=== PATIENT | male | born 1975 | race Caucasian/White ===

== ENCOUNTER 2023-08-07 09:02 | Outpatient (OUT) | payer BC, SELFPAY ==
--- NOTE | 2023-08-07 | XR_ITS ---
The [address] [address] Patient Name: CASSY SANTILLAN MRN: [id number] date: 1975 Sex: M Assigned Patient Location: [facility] Current Patient Location: Accession/Order Number: [id number] Exam Date: 08/07/2023 09:10 Report Date: 08/08/2023 11:25 At the request of: COLLEEN MAYER Procedure: XR foot LISA min 3V EXAMINATION: XR foot LISA min 3V HISTORY: BILATERAL FOOT PAIN COMPARISON: No relevant comparison available. FINDINGS: RIGHT FINDINGS: BONES: Small calcaneal plantar spur. No fracture, dislocation, or bone lesion. No appreciable significant degenerative joint disease. SOFT TISSUES: No visible soft tissue swelling. OTHER: Negative. LEFT FINDINGS: BONES: Small calcaneal plantar spur. No fracture, dislocation, or bone lesion. No appreciable significant degenerative joint disease. SOFT TISSUES: No visible soft tissue swelling. OTHER: Negative. XR/XR foot LISA min 3V IMPRESSION: RIGHT CONCLUSION: No acute abnormality or significant degenerative changes. LEFT CONCLUSION: No acute abnormality significant degenerative changes. Electronically authenticated by: SAHIL ASCENCIO Date: 08/08/2023 11:25
== END 2023-08-07 09:03 | disposition home or self-care (01) ==
LOC: RAD 09:04
PROVIDERS: Visit Provider Physician Assistant
DX: M77.41 Metatarsalgia, right foot (principal); M77.42 Metatarsalgia, left foot
CPT/HCPCS: 73630

== ENCOUNTER 2024-09-04 09:39 | Emergency (ER) | payer BC, SELFPAY ==
[2024-09-04 09:42] VITALS: BP 146/104; PULSE 103; TEMP 36.7; O2SAT 98; BMI 28.5
--- OUTSIDE RECORDS SUMMARY | 2024-09-04 09:47 | XMS_ITS | CCD ---
Author Organization 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 Name Role Phone MD Kody Gonzalez Primary Care Provider MD Kody Gonzalez Attending Provider [phone] [place] DO, Franki L Primary Care Provider [phone] Augusta, DO Franki L Primary Care Provider Augusta, DO Franki L Attending Provider Augusta, Franki L Attending Unavailable Augusta, Franki L Primary Care Unavailable Augusta, Franki L Admitting Unavailable CUTLER, FRANKI L Attending Unavailable CUTLER, FRANKI L Attending Unavailable CUTLER, FRANKI L Attending Unavailable Allergies Allergy Classification Reported Allergen(s) Allergy Type Date of Onset Reaction(s) Facility (2 sources) House dust mite Allergy to substance 10-24-2015 Unknown [facility] (2 sources) Cat Hair Extract Allergy to substance 10-24-2015 Unknown [facility] Medications Current Medications Medication Drug Class(es) Dates Sig (Normalized) Sig (Original) amLODIPine 5 mg / olmesartan medoxomil 40 mg oral tablet (2 sources) Dihydropyridine Calcium Channel Maritza, Angiotensin 2 Receptor Maritza Start: 07-23-2024 amLODIPine-olmesa rtan (Bailey) 5-40 MG tablet Indications: Primary hypertension (CMS/HCC) TAKE 1 TABLET DAILY 90 tablet 3 07/23/2024 Active atorvastatin 20 mg oral tablet (2 sources) HMG-CoA Reductase Inhibitor Start: 06-28-2024 atorvastatin (Lipitor) 20 MG tablet Indications: Type 2 diabetes mellitus with hyperglycemia, without long-term current use of insulin (CMS/HCC) TAKE 1 TABLET DAILY 90 tablet 3 06/28/2024 Active meloxicam 15 mg oral tablet (2 sources) Nonsteroidal Anti-inflammatory Drug take 1 tablet by mouth once daily meloxicam (Mobic) 15 MG tablet Take 15 mg by mouth Daily Active 24 hr metFORMIN hydrochloride 500 mg extended release oral tablet (2 sources) Biguanide Start: 06-28-2024 metFORMIN XR (Glucophage-XR) 500 MG 24 hr tablet Indications: Type 2 diabetes mellitus with hyperglycemia, without long-term current use of insulin (CMS/HCC) TAKE 2 TABLETS IN THE MORNING AND BEFORE BEDTIME 360 tablet 3 06/28/2024 Active Ozempic, 0.25 or 0.5 MG/DOSE, 2 MG/3ML solution pen-injector (2 sources) Start: 06-21-2024 inject 0.5 mg by subcutaneous injection every week Ozempic, 0.25 or 0.5 MG/DOSE, 2 MG/3ML solution pen-injector Indications: Type 2 diabetes mellitus with hyperglycemia, without long-term current use of insulin (CMS/HCC) INJECT 0.5 MG UNDER THE SKIN ONCE WEEKLY 9 mL 3 06/21/2024 Active 24 hr venlafaxine 75 mg extended release oral capsule (2 sources) Serotonin and Norepinephrine Reuptake Inhibitor Start: 03-16-2024 take 1 capsule by mouth once daily in the morning venlafaxine XR (Effexor XR) 75 MG 24 hr capsule Indications: EMILIA (generalized anxiety disorder) (CMS/HCC) Take 1 capsule (75 mg) by mouth Daily Do not crush or chew.Take 1 capsule (75 mg) by mouth in the morning. Do not crush or chew.. 90 capsule 3 03/16/2024 Active Problems Active Problems Problem Classification Problem Date Documented Date Episodic/Chronic Diabetes mellitus with complications (3 sources) Type 2 diabetes mellitus with hyperglycemia; Translations: [Hyperglycemia due to type 2 diabetes mellitus] Onset: 11-19-2023 11-19-2023 Chronic Essential hypertension (2 sources) Essential hypertension; Translations: [Essential (primary) hypertension] Onset: 11-19-2023 11-19-2023 Chronic Osteoarthritis (2 sources) Osteoarthritis of left knee joint; Translations: [Unilateral primary osteoarthritis, left knee] Onset: 10-24-2015 11-19-2023 Chronic Substance-related disorders (2 sources) Smoker; Translations: [Nicotine dependence, unspecified, uncomplicated] Onset: 03-29-2024 03-29-2024 Chronic Past or Other Problems Problem Classification Problem Date Documented Da te Episodic/Chronic Sprains and strains (2 sources) Rupture of anterior cruciate ligament; Translations: [Sprain of anterior cruciate ligament of unspecified knee, initial encounter] Onset: 10-24-2015 Resolved: 11-19-2023 11-19-2023 Episodic Results Test Name Value Interpretation Reference Range Facility Alanine aminotransferase [En zymatic activity/volume] in Serum or PlasmaOrdered By: Franki Orellana on 12-25-2023 ALT [Catalytic activity/Vol] 65 U/L 7-52 [facility] Albumin [Mass/volume] in Ser um or Plasma by Bromocresol green (BCG) dye binding methoOrdered By: Franki Orellana on 12-25-2023 Albumin BCG dye [Mass/Vol] 4.9 g/dL 3.5-5.7 [facility] Alkaline phosphatase [Enzyma tic activity/volume] in Serum or PlasmaOrdered By: Franki Orellana on 12-25-2023 ALP [Catalytic activity/Vol] 69 U/L 34-104 [facility] Aspartate aminotransferase [ Enzymatic activity/volume] in Serum or PlasmaOrdered By: Franki Orellana on 12-25-2023 AST [Catalytic activity/Vol] 29 U/L 13-39 [facility] Basophils Auto (Bld) [#/Vol] Ordered By: Franki Orellana on 12-25-2023 Basophils (Bld) [#/Vol] 0.1 10*3/uL 0.0-0.2 [facility] Basophils/100 WBC Auto (Bld) Ordered By: Franki Orellana on 12-25-2023 Basophils/100 WBC (Bld) 1.0 % . F [facility] Bilirubin.total [Mass/volume ] in Serum or PlasmaOrdered By: Franki Orellana on 12-25-2023 Bilirubin [Mass/Vol] 0.9 mg/dL 0.3-1.0 [facility] Calcium [Mass/volume] in Ser um or PlasmaOrdered By: Franki Orellana on 12-25-2023 Calcium [Mass/Vol] 9.5 mg/dL 8.6-10.3 [facility] Carbon dioxide, total [Moles /volume] in Serum or PlasmaOrdered By: Franki Orellana on 12-25-2023 CO2 [Moles/Vol] 27.4 mmol/L 21.0-31.0 [facility] Chloride [Moles/volume] in S olga or PlasmaOrdered By: Franki Orellana on 12-25-2023 Chloride [Moles/Vol] 100 mmol/L 98-107 [facility] Cholesterol [Mass/volume] in Serum or PlasmaOrdered By: Franki Orellana on 12-25-2023 Cholesterol [Mass/Vol] 187 mg/dL 140-200 [facility] Comment on above: Chol less than 200 m g/dl low riskChol 201-239 mg/dl borderline riskChol 240 mg/dl and greater high risk Cholesterol in LDL Calc [Mas s/Vol]Ordered By: Franki Orellana on 12-25-2023 Cholesterol in LDL [Mass/Vol] 51 mg/dL 0-100 [facility] Comment on above: LDL ATP III CLASSIFI CATIONLDL less than 100 mg/dL OptimalLDL 100-129 mg/dL Near or above optimalLDL 130-159 mg/dL Borderline highLDL 160-189 mg/dL HighLDL greater than 189 mg/dL Very high Cholesterol in VLDL Calc [Ma ss/Vol]Ordered By: Franki Orellana on 12-25-2023 Cholesterol in VLDL [Mass/Vol] 79 mg/dL [facility] Complete Blood Count Auto Di ffon 12-25-2023 Basophils (Bld) [#/Vol] 0.1 10*3/uL Normal 0.0-0.2 [facility] Comment on above: Result Comment: PERF ORMED BY: [facility] [address] [place] [address] PATHOLOGIST TANK PROCESSOR JENNIFER DONNELLY M.D. Performed By: #### L IPID, CMP, CBC, URMACRERAT #### [facility] [address] [place] [address] [place] Basophils/100 WBC (Bld) 1.0 % Normal . F [facility] Comment on above: Performed By: #### L IPID, CMP, CBC, URMACRERAT #### [facility] [address] [place] [id number] [place] Eosinophils (Bld) [#/Vol] 0.1 10*3/uL Normal 0.0-0.45 [facility] Comment on above: Performed By: #### L IPID, CMP, CBC, URMACRERAT #### [address] Eosinophils/100 WBC (Bld) 1.7 % Normal . [facility] Comment on above: Performed By: #### L IPID, CMP, CBC, URMACRERAT #### [address] Erythrocyte distribution width (RBC) [Ratio] 12.7 % Normal 12.0-14.8 [facility] Comment on above: Performed By: #### L IPID, CMP, CBC, URMACRERAT #### [address] Hematocrit (Bld) [Volume fraction] 44.8 % Normal 38.8-50.0 [facility] Comment on above: Performed By: #### L IPID, CMP, CBC, URMACRERAT #### [address] Hemoglobin (Bld) [Mass/Vol] 15.3 g/dL Normal 13.0-17.0 [facility] Comment on above: Performed By: #### L IPID, CMP, CBC, URMACRERAT #### [address] Lymphocytes (Bld) [#/Vol] 0.9 10*3/uL Low 1.00-4.8 [facility] Comment on above: Performed By: #### L IPID, CMP, CBC, URMACRERAT #### [address] Lymphocytes/100 WBC (Bld) 16.5 % Normal . [facility] Comment on above: Performed By: #### L IPID, CMP, CBC, URMACRERAT #### [address] MCH (RBC) [Entitic mass] 31.2 pg Normal 27.5-35.2 [facility] Comment on above: Performed By: #### L IPID, CMP, CBC, URMACRERAT #### [address] MCV (RBC) [Entitic vol] 91.6 fL Normal 83.5-[address] [facility] Comment on above: Performed By: #### L IPID, CMP, CBC, URMACRERAT #### [address] Mean Corpuscular HGB Conc 34.1 g/dL Normal 32.5-35.6 [facility] Comment on above: Performed By: #### L IPID, CMP, CBC, URMACRERAT #### [address] Monocytes (Bld) [#/Vol] 0.5 10*3/uL Normal 0.0-0.8 [facility] Comment on above: Performed By: #### L IPID, CMP, CBC, URMACRERAT #### [place] [address] [place] Monocytes/100 WBC (Bld) 7.9 % Normal . F [facility] Comment on above: Performed By: #### L IPID, CMP, CBC, URMACRERAT #### [address] Neutrophils (Bld) [#/Vol] 4.2 10*3/uL Normal 1.8-7.7 [facility] Comment on above: Performed By: #### L IPID, CMP, CBC, URMACRERAT #### [place] [address] [place] Neutrophils/100 WBC (Bld) 72.9 % Normal . [facility] Comment on above: Performed By: #### L IPID, CMP, CBC, URMACRERAT #### [place] [address] [place] NRBC% 0.3 /100{WBC} Normal 0-0.5 [facility] Comment on above: Performed By: #### L IPID, CMP, CBC, URMACRERAT #### [facility] [address] Platelet mean volume (Bld) [Entitic vol] 8.6 fL Normal 6.6-10.1 [facility] Comment on above: Performed By: #### L IPID, CMP, CBC, URMACRERAT #### [facility] [address] Platelets (Bld) [#/Vol] 221 10*3/uL Normal 150-450 [facility] Comment on above: Performed By: #### L IPID, CMP, CBC, URMACRERAT #### [address] RBC (Bld) [#/Vol] 4.89 10*6/uL Normal 3.90-5.60 [facility] Comment on above: Performed By: #### L IPID, CMP, CBC, URMACRERAT #### [address] WBC (Bld) [#/Vol] 5.7 10*3/uL Normal 4.1-10.5 [facility] Comment on above: Performed By: #### L IPID, CMP, CBC, URMACRERAT #### [address] Comprehensive Metabolic Pane aureliano 12-25-2023 Albumin [Mass/Vol] 4.9 g/dL Normal 3.5-5.7 [facility] Comment on above: Performed By: #### L IPID, CMP, CBC, URMACRERAT #### [address] Albumin/Globulin [Mass ratio] 2.0 {ratio} Normal [facility] Comment on above: Performed By: #### L IPID, CMP, CBC, URMACRERAT #### [address] ALP [Catalytic activity/Vol] 69 U/L Normal 34-104 [facility] Comment on above: Performed By: #### L IPID, CMP, CBC, URMACRERAT #### [facility] [address] [place] [address] ALT [Catalytic activity/Vol] 65 U/L High 7-52 [facility] Comment on above: Performed By: #### L IPID, CMP, CBC, URMACRERAT #### [facility] [address] [place] [address] Anion gap [Moles/Vol] 13.8 mmol/L Normal 6.0-15.0 [facility] Comment on above: Performed By: #### L IPID, CMP, CBC, URMACRERAT #### [address] AST [Catalytic activity/Vol] 29 U/L Normal 13-39 [facility] Comment on above: Performed By: #### L IPID, CMP, CBC, URMACRERAT #### [facility] [address] [place] [address] Bilirubin [Mass/Vol] 0.9 mg/dL Normal 0.3-1.0 [facility] Comment on above: Performed By: #### L IPID, CMP, CBC, URMACRERAT #### [address] Calcium [Mass/Vol] 9.5 mg/dL Normal 8.6-10.3 [facility] Comment on above: Performed By: #### L IPID, CMP, CBC, URMACRERAT #### [address] Chloride [Moles/Vol] 100 mmol/L Normal 98-107 [facility] Comment on above: Performed By: #### L IPID, CMP, CBC, URMACRERAT #### [facility] [address] [place] [address] CO2 [Moles/Vol] 27.4 mmol/L Normal 21.0-31.0 [facility] Comment on above: Performed By: #### L IPID, CMP, CBC, URMACRERAT #### [facility] [address] Creatinine [Mass/Vol] 0.89 mg/dL Normal 0.70-1.30 [facility] Comment on above: Performed By: #### L IPID, CMP, CBC, URMACRERAT #### [facility] [address] GFR/1.73 sq M.predicted MDRD (S/P/Bld) [Vol rate/Area] mL/min/{1.73_m2} Normal [facility] Comment on above: Performed By: #### L IPID, CMP, CBC, URMACRERAT #### [facility] [address] Globulin (S) [Mass/Vol] 2.4 g/dL Normal [facility] Comment on above: Performed By: #### L IPID, CMP, CBC, URMACRERAT #### [address] Glucose [Mass/Vol] 195 mg/dL High 70-100 [facility] Comment on above: Result Comment: [facility] Glucose Reference Range is dependent on time and content of last meal. Glucose of more than 200 mg/dL in a nonstressed, ambulatory subject supports the diagnosis of Diabetes Mellitus. ADA recommended reference range Performed By: #### L IPID, CMP, CBC, URMACRERAT #### [facility] [address] Potassium [Moles/Vol] 4.2 mmol/L Normal 3.5-5.1 [facility] Comment on above: Performed By: #### L IPID, CMP, CBC, URMACRERAT #### [address] Protein [Mass/Vol] 7.3 g/dL Normal 6.4-8.9 [facility] Comment on above: Performed By: #### L IPID, CMP, CBC, URMACRERAT #### [address] [address] [place] Sodium [Moles/Vol] 137 mmol/L Normal 136-145 [facility] Comment on above: Performed By: #### L IPID, CMP, CBC, URMACRERAT #### [facility] [address] Urea nitrogen [Mass/Vol] 18 mg/dL Normal 7-25 [facility] Comment on above: Performed By: #### L IPID, CMP, CBC, URMACRERAT #### [facility] [address] [place] [address] [place] Creatinine [Mass/volume] in Serum or PlasmaOrdered By: Franki Orellana on 12-25-2023 Creatinine [Mass/Vol] 0.89 mg/dL 0.70-1.30 [facility] Creatinine [Mass/volume] in UrineOrdered By: Franki Orellana on 12-25-2023 Creatinine (U) [Mass/Vol] 221.0 mg/dL 14.0-26.0 [facility] Eosinophils Auto (Bld) [#/Vo l]Ordered By: Franki Orellana on 12-25-2023 Eosinophils (Bld) [#/Vol] 0.1 10*3/uL 0.0-0.45 [facility] Eosinophils/100 WBC Auto (Bl d)Ordered By: Franki Orellana on 12-25-2023 Eosinophils/100 WBC (Bld) 1.7 % . [facility] Erythrocyte distribution wid th Auto (RBC) [Ratio]Ordered By: Frnaki Orellana on 12-25-2023 Erythrocyte distribution width (RBC) [Ratio] 12.7 % 12.0-14.8 [facility] Globulin Calc (S) [Mass/Vol] Ordered By: Franki Orellana on 12-25-2023 Globulin (S) [Mass/Vol] 2.4 g/dL F [facility] Glucose [Mass/volume] in Ser um or PlasmaOrdered By: Franki Orellana on 12-25-2023 Glucose [Mass/Vol] 195 mg/dL 70-100 [facility] Comment on above: ADA recommended refe rence rangeRandom Glucose Reference Range is dependent on time and content of last meal. Glucose of more than 200 mg/dL in a nonstressed, ambulatory subject supports the diagnosis of Diabetes Mellitus. Hematocrit Auto (Bld) [Volum e fraction]Ordered By: Franki Orellana on 12-25-2023 Hematocrit (Bld) [Volume fraction] 44.8 % 38.8-50.0 [facility] Hemoglobin [Mass/volume] in BloodOrdered By: Franki Orellana on 12-25-2023 Hemoglobin (Bld) [Mass/Vol] 15.3 g/dL 13.0-17.0 [facility] Leukocytes [#/volume] correc zoe for nucleated erythrocytes in Blood by Automated counOrdered By: Franki Orellana on 12-25-2023 WBC corrected for nucl RBC Auto (Bld) [#/Vol] 5.7 10*3/uL 4.1-10.5 [facility] Lipid Panelon 12-25-2023 Cholesterol [Mass/Vol] 187 mg/dL Normal 140-200 [facility] Comment on above: Result Comment: Chol less than 200 mg/dl low risk Chol 201-239 mg/dl borderline risk Chol 240 mg/dl and greater high risk Performed By: #### L IPID, CMP, CBC, URMACRERAT #### [facility] [address] Cholesterol in HDL [Mass/Vol] 57 mg/dL Normal 23-92 [facility] Comment on above: Result Comment: HDL CHOL ATP-III CLASSIFICATION Cardiovascular Risk HDL > or equal to 60 mg/dL LOW HDL < 40 mg/dL HIGH Performed By: #### L IPID, CMP, CBC, URMACRERAT #### [facility] [address] Cholesterol.total/Choles terol in HDL [Mass ratio] 3.3 {ratio} Normal <5.0 [facility] Comment on above: Result Comment: PERF ORMED BY: [place] [address] PATHOLOGIST TANK PROCESSOR JENNIFER DONNELLY M.D. Performed By: #### L IPID, CMP, CBC, URMACRERAT #### [facility] [address] LDL Cholesterol,Calculated 51 mg/dL Normal 0-100 [facility] Comment on above: Result Comment: LDL ATP III CLASSIFICATION LDL less than 100 mg/dL Optimal LDL 100-129 mg/dL Near or above optimal LDL 130-159 mg/dL Borderline high LDL 160-189 mg/dL High LDL greater than 189 mg/dL Very high Performed By: #### L IPID, CMP, CBC, URMACRERAT #### [facility] [address] Triglyceride w/Reflex 395 mg/dL High 0-149 [facility] Comment on above: Result Comment: TRIG ATP III CLASSIFICATION TRIG less than 150 mg/dL Normal TRIG 150-199 mg/dL Borderline high TRIG 200-500 mg/dL High TRIG greater than 500 mg/dL Very high Standard traceable to the Center for Disease Conrtrol and Prevention (CDC) test method. Performed By: #### L IPID, CMP, CBC, URMACRERAT #### [facility] [address] VLDL CHOLESTEROL 79 mg/dL Normal [facility] Comment on above: Performed By: #### L IPID, CMP, CBC, URMACRERAT #### [facility] [address] Lymphocytes Auto (Bld) [#/Vo l]Ordered By: Franki Orellana on 12-25-2023 Lymphocytes (Bld) [#/Vol] 0.9 10*3/uL 1.00-4.8 [facility] Lymphocytes/100 WBC Auto (Bl d)Ordered By: Franki Orellana on 12-25-2023 Lymphocytes/100 WBC (Bld) 16.5 % . [facility] MCH Auto (RBC) [Entitic mass ]Ordered By: Franki Orellana on 12-25-2023 MCH (RBC) [Entitic mass] 31.2 pg 27.5-35.2 [facility] MCHC Auto (RBC) [Mass/Vol]Or dered By: Franki Orlelana on 12-25-2023 MCHC (RBC) [Mass/Vol] 34.1 g/dL 32.5-35.6 [facility] MCV Auto (RBC) [Entitic vol] Ordered By: Franki Orellana on 12-25-2023 MCV (RBC) [Entitic vol] 91.6 fL 83.5-[address] [facility] MicroAlb Creat Ratio,Uon Albumin DL <= 20 mg/L (U) [Mass/Vol] 3.8 mg/dL High 0.0-1.8 [facility] Comment on above: Performed By: #### L IPID, CMP, CBC, URMACRERAT #### [facility] [address] Creatinine, Urine (Random) 221.0 mg/dL High 14.0-26.0 [facility] Comment on above: Performed By: #### L IPID, CMP, CBC, URMACRERAT #### [facility] [address] Microalbumin/Creatinine Ratio 17.0 mg/g Normal 0.0-30.0 [facility] Comment on above: Result Comment: 30-3 00 mg/g indicates an increased risk for diabetic nephropathy. Greater than 300 mg/g is consistent with clinical nephropathy. (Am. J. Kidney Disease 1995, 25:107) PERFORMED BY: [place] [address] PATHOLOGIST TANK PROCESSOR JENNIFER DONNELLY M.D. Performed By: #### L IPID, CMP, CBC, URMACRERAT #### [facility] [address] [place] [address] Microalbumin [Mass/volume] i n UrineOrdered By: Franki Orellana on 12-25-2023 Albumin DL <= 20 mg/L (U) [Mass/Vol] 3.8 mg/dL 0.0-1.8 [facility] Monocytes Auto (Bld) [#/Vol] Ordered By: Franki Orellana on 12-25-2023 Monocytes (Bld) [#/Vol] 0.5 10*3/uL 0.0-0.8 [facility] Monocytes/100 WBC Auto (Bld) Ordered By: Franki Orellana on 12-25-2023 Monocytes/100 WBC (Bld) 7.9 % . F [facility] Neutrophils Auto (Bld) [#/Vo l]Ordered By: Franki Orelalna on 12-25-2023 Neutrophils (Bld) [#/Vol] 4.2 10*3/uL 1.8-7.7 [facility] Neutrophils/100 WBC Auto (Bl d)Ordered By: Franki Orellana on 12-25-2023 Neutrophils/100 WBC (Bld) 72.9 % . [facility] No Panel InformationOrdered By: Franki Orellana on 12-25-2023 Estimated GFR (CKD-EPI) > 60.0 mL/Min [facility] Creatinine Clearance (Chem N/A [facility] Nucleated erythrocytes [Pres ence] in Blood by Automated countOrdered By: Franki Orellana on 12-25-2023 Nucleated RBC Auto Ql (Bld) 0.3 /100{WBC} 0-0.5 [facility] Platelet mean volume Auto (B ld) [Entitic vol]Ordered By: Franki Orellana on 12-25-2023 Platelet mean volume (Bld) [Entitic vol] 8.6 fL 6.6-10.1 [facility] Platelets Auto (Bld) [#/Vol] Ordered By: Franki Orellana on 12-25-2023 Platelets (Bld) [#/Vol] 221 10*3/uL 150-450 [facility] Potassium [Moles/volume] in Serum or PlasmaOrdered By: Franki Orellana on 12-25-2023 Potassium [Moles/Vol] 4.2 mmol/L 3.5-5.1 [facility] Protein [Mass/volume] in Ser um or PlasmaOrdered By: Franki Orellana on 12-25-2023 Protein [Mass/Vol] 7.3 g/dL 6.4-8.9 [facility] RBC Auto (Bld) [#/Vol]Ordere d By: Franki Orellana on 12-25-2023 RBC (Bld) [#/Vol] 4.89 10*6/uL 3.90-5.60 [facility] Serum or plasma albumin/glob ulin mass ratioOrdered By: Franki Orellana on 12-25-2023 Albumin/Globulin [Mass ratio] 2.0 {ratio} [facility] Serum or plasma anion gap de terminationOrdered By: Franki Orellana on 12-25-2023 Anion gap [Moles/Vol] 13.8 mmol/L 6.0-15.0 [facility] Serum or plasma high density lipoprotein (HDL) cholesterol measurementOrdered By: Frakni Orellana on 12-25-2023 Cholesterol in HDL [Mass/Vol] 57 mg/dL 23- [facility] Comment on above: HDL CHOL ATP-III CLA SSIFICATION Cardiovascular RiskHDL > or equal to 60 mg/dL LOWHDL < 40 mg/dL HIGH Serum or plasma total choles terol/high density lipoprotein (HDL) cholesterol mass ratOrdered By: Franki Orellana on 12-25-2023 Cholesterol.total/Choles terol in HDL [Mass ratio] 3.3 {ratio} <5.0 [facility] Sodium [Moles/volume] in Ser um or PlasmaOrdered By: Franki Orellana on 12-25-2023 Sodium [Moles/Vol] 137 mmol/L 136-145 [facility] Triglyceride [Mass/volume] i n Serum or PlasmaOrdered By: Franki Orellana on 12-25-2023 Triglyceride [Mass/Vol] 395 mg/dL 0-[address] [facility] Comment on above: TRIG ATP III CLASSIF ICATIONTRIG less than 150 mg/dL NormalTRIG 150-199 mg/dL Borderline highTRIG 200-500 mg/dL High TRIG greater than 500 mg/dL Very highStandard traceable to the Center for Disease Conrtrol and Prevention (CDC) test method. Urea nitrogen [Mass/volume] in Serum or PlasmaOrdered By: Franki Orellana on 12-25-2023 Urea nitrogen [Mass/Vol] 18 mg/dL 7-25 [facility] Urine microalbumin/creatinin e mass ratioOrdered By: Franki Orellana on 12-25-2023 Albumin/Creatinine DL <= 20 mg/L (U) [Mass ratio] 17.0 mg/g 0.0-30.[address] [facility] Comment on above: 30-300 mg/g indicate s an increased risk for diabetic nephropathy. Greater than 300 mg/g is consistent with clinical nephropathy. (Am. J. Kidney Disease 1995, 25:107) WBC Auto (Bld) [#/Vol]Ordere d By: Franki Orellana on 12-25-2023 WBC (Bld) [#/Vol] 5.7 10*3/uL 4.1-10.5 [facility] Albumin [Mass/volume] in Ser um or PlasmaOrdered By: Kody Gonzalez on 10-02-2022 Albumin [Mass/Vol] 4.3 g/dL 3.2-5.5 [facility] Basophils Auto (Bld) [#/Vol] Ordered By: Kody Gonzalez on 10-02-2022 Basophils (Bld) [#/Vol] 0.0 10*3/uL 0.0-0.2 [facility] Basophils/100 WBC Auto (Bld) Ordered By: Kody Gonzalez on 10-02-2022 Basophils/100 WBC (Bld) 0.7 % . F [facility] Cholesterol [Mass/volume] in Serum or PlasmaOrdered By: Kody Gonzalez on 10-02-2022 Cholesterol [Mass/Vol] 233 mg/dL 140-200 [facility] Comment on above: Chol less than 200 m g/dl low riskChol 201-239 mg/dl borderline riskChol 240 mg/dl and greater high risk Cholesterol in LDL Calc [Mas s/Vol]Ordered By: Kody Gonzalez on 10-02-2022 Cholesterol in LDL [Mass/Vol] 104 mg/dL 0-100 [facility] Comment on above: LDL ATP III CLASSIFI CATIONLDL less than 100 mg/dL OptimalLDL 100-129 mg/dL Near or above optimalLDL 130-159 mg/dL Borderline highLDL 160-189 mg/dL HighLDL greater than 189 mg/dL Very high Cholesterol in VLDL Calc [Ma ss/Vol]Ordered By: Kody Gonzalez on 10-02-2022 Cholesterol in VLDL [Mass/Vol] 59 mg/dL [facility] Creatinine [Mass/volume] in UrineOrdered By: Kody Gonzalez on 10-02-2022 Creatinine (U) [Mass/Vol] 252.3 mg/dL [facility] Comment on above: No reference range e stablished Creatinine and Glomerular fi ltration rate.predicted panel (S/P/Bld)Ordered By: Kody Gonzalez on 10-02-2022 Creatinine [Mass/Vol] 0.80 mg/dL 0.64-1.27 [facility] Eosinophils Auto (Bld) [#/Vo l]Ordered By: Kody Gonzalez on 10-02-2022 Eosinophils (Bld) [#/Vol] 0.1 10*3/uL 0.0-0.45 [facility] Eosinophils/100 WBC Auto (Bl d)Ordered By: Kody Gonzalez on 10-02-2022 Eosinophils/100 WBC (Bld) 1.5 % . [facility] Erythrocyte distribution wid th Auto (RBC) [Ratio]Ordered By: Kody Gonzalez on 10-02-2022 Erythrocyte distribution width (RBC) [Ratio] 12.1 % 12.0-14.8 [facility] Estimated glomerular filtrat ion rate (GFR) non- AmericanOrdered By: Kody Gonzalez on 10-02-2022 GFR/1.73 sq M.predicted among non-blacks MDRD (S/P/Bld) [Vol rate/Area] > 60 mL/Min [facility] Globulin Calc (S) [Mass/Vol] Ordered By: Kody Gonzalez on 10-02-2022 Globulin (S) [Mass/Vol] 2.5 g/dL F [facility] Glucose mean value [Mass/vol ume] in Blood Estimated from glycated hemoglobinOrdered By: Kody Gonzalez on 10-02-2022 Average glucose Estimated from glycated hemoglobin (Bld) [Mass/Vol] 171 mg/dL [facility] Hematocrit Auto (Bld) [Volum e fraction]Ordered By: Kody Gonzalez on 10-02-2022 Hematocrit (Bld) [Volume fraction] 45.5 % 38.8-50.0 [facility] Hemoglobin A1c percentageOrd ered By: Kody Gonzalez on 10-02-2022 HbA1c (Bld) [Mass fraction] 7.6 % 4.3-5.6 [facility] Comment on above: Increased risk for d iabetes: 5.7 - 6.4diabetes: >6.4glycemic control for adults with diabetes: <7.0 Hemoglobin [Mass/volume] in BloodOrdered By: Kody Gonzalez on 10-02-2022 Hemoglobin (Bld) [Mass/Vol] 15.5 g/dL 13.0-17.0 [facility] Leukocytes [#/volume] correc zoe for nucleated erythrocytes in Blood by Automated counOrdered By: Kody Gonzalez on 10-02-2022 WBC corrected for nucl RBC Auto (Bld) [#/Vol] 5.4 10*3/uL 4.1-10.5 [facility] Lymphocytes Auto (Bld) [#/Vo l]Ordered By: Kody Gonzalez on 10-02-2022 Lymphocytes (Bld) [#/Vol] 0.9 10*3/uL 1.00-4.8 [facility] Lymphocytes/100 WBC Auto (Bl d)Ordered By: Kody Gonzalez on 10-02-2022 Lymphocytes/100 WBC (Bld) 16.9 % . [facility] MCH Auto (RBC) [Entitic mass ]Ordered By: Kody Gonzalez on 10-02-2022 MCH (RBC) [Entitic mass] 31.6 pg 27.5-35.2 [facility] MCHC Auto (RBC) [Mass/Vol]Or dered By: Kody Gonzalez on 10-02-2022 MCHC (RBC) [Mass/Vol] 34.1 g/dL 32.5-35.6 [facility] MCV Auto (RBC) [Entitic vol] Ordered By: Kody Gonzalez on 10-02-2022 MCV (RBC) [Entitic vol] 92.7 fL 83.5-[address] [facility] Monocytes Auto (Bld) [#/Vol] Ordered By: Kody Gonzalez on 10-02-2022 Monocytes (Bld) [#/Vol] 0.5 10*3/uL 0.0-0.8 [facility] Monocytes/100 WBC Auto (Bld) Ordered By: Kody Gonzalez on 10-02-2022 Monocytes/100 WBC (Bld) 8.9 % . F [facility] Neutrophils Auto (Bld) [#/Vo l]Ordered By: Kody Gonzalez on 10-02-2022 Neutrophils (Bld) [#/Vol] 3.9 10*3/uL 1.8-7.7 [facility] Neutrophils/100 WBC Auto (Bl d)Ordered By: Kody Gonzalez on 10-02-2022 Neutrophils/100 WBC (Bld) 72.0 % . [facility] No Panel InformationOrdered By: Kody Gonzalez on 10-02-2022 Estimated GFR () > 60 mL/Min [facility] Comment on above: GFR estimated refere nce range: According to KDOQI guidelines, <60 ml/min/1.73m2 is sufficient to diagnose a patient with chronic kidney disease. Pharmacy Creatinine Clearance (Chem N/A [facility] Nucleated erythrocytes [Pres ence] in Blood by Automated countOrdered By: Kody Gonzalez on 10-02-2022 Nucleated RBC Auto Ql (Bld) 0.2 /100{WBC} 0-0.5 [facility] Platelet mean volume Auto (B ld) [Entitic vol]Ordered By: Kody Gonzalez on 10-02-2022 Platelet mean volume (Bld) [Entitic vol] 8.7 fL 6.6-10.1 [facility] Platelets Auto (Bld) [#/Vol] Ordered By: Kody Gonzalez on 10-02-2022 Platelets (Bld) [#/Vol] 212 10*3/uL 150-450 [facility] Protein [Mass/volume] in Ser um or PlasmaOrdered By: Kody Gonzalez on 10-02-2022 Protein [Mass/Vol] 6.8 g/dL 6.1-7.9 [facility] RBC Auto (Bld) [#/Vol]Ordere d By: Kody Gonzalez on 10-02-2022 RBC (Bld) [#/Vol] 4.91 10*6/uL 3.90-5.60 [facility] Serum or plasma alanine gama otransferase measurement without P-5'-P (enzymatic activiOrdered By: Kody Gonzalez on 10-02-2022 ALT No additional P-5'-P [Catalytic activity/Vol] 40 U/L 10-[address] [facility] Serum or plasma albumin/glob ulin mass ratioOrdered By: Kody Gonzalez on 10-02-2022 Albumin/Globulin [Mass ratio] 1.7 {ratio} [facility] Serum or plasma alkaline dewayne sphatase measurement (enzymatic activity/volume)Ordered By: Kody Gonzalez on 10-02-2022 ALP [Catalytic activity/Vol] 61 U/L 32-92 [facility] Serum or plasma anion gap de terminationOrdered By: Kody Gonzalez on 10-02-2022 Anion gap [Moles/Vol] 13.5 mmol/L 6.0-15.0 [facility] Serum or plasma aspartate am inotransferase measurement (enzymatic activity/volume)Ordered By: Kody Gonzalez on 10-02-2022 AST [Catalytic activity/Vol] 25 U/L 10-42 [facility] Serum or plasma calcium marifer urement (mass/volume)Ordered By: Kody Gonzalez on 10-02-2022 Calcium [Mass/Vol] 9.4 mg/dL 8.2-10.2 [facility] Serum or plasma chloride yelitza surement (moles/volume)Ordered By: Kody Gonzalez on 10-02-2022 Chloride [Moles/Vol] 97 mmol/L 95-114 [facility] Serum or plasma glucose marifer urement (mass/volume)Ordered By: Kody Gonzalez on 10-02-2022 Glucose [Mass/Vol] 217 mg/dL 70-100 [facility] Comment on above: ADA recommended refe rence rangeRandom Glucose Reference Range is dependent on time and content of last meal. Glucose of more than 200 mg/dL in a nonstressed, ambulatory subject supports the diagnosis of Diabetes Mellitus. Serum or plasma high density lipoprotein (HDL) cholesterol measurementOrdered By: Kody Gonzalez on 10-02-2022 Cholesterol in HDL [Mass/Vol] 69 mg/dL 29-71 [facility] Comment on above: HDL CHOL ATP-III CLA SSIFICATION Cardiovascular RiskHDL > or equal to 60 mg/dL LOWHDL < 40 mg/dL HIGH Serum or plasma potassium me asurement (moles/volume)Ordered By: Kody Gonzalez on 10-02-2022 Potassium [Moles/Vol] 3.9 mmol/L 3.5-5.1 [facility] Serum or plasma sodium measu rement (moles/volume)Ordered By: Kody Gonzalez on 10-02-2022 Sodium [Moles/Vol] 134 mmol/L 136-146 [facility] Serum or plasma total biliru bin measurement (mass/volume)Ordered By: Kody Gonzalez on 10-02-2022 Bilirubin [Mass/Vol] 1.1 mg/dL 0.3-1.2 [facility] Serum or plasma total carbon dioxide measurement (moles/volume)Ordered By: Kody Gonzalez on 10-02-2022 CO2 [Moles/Vol] 27.4 mmol/L 22.0-30.0 [facility] Serum or plasma total choles terol/high density lipoprotein (HDL) cholesterol mass ratOrdered By: Kody Gonzalez on 10-02-2022 Cholesterol.total/Choles terol in HDL [Mass ratio] 3.4 {ratio} <5.0 [facility] Serum or plasma urea nitroge n measurement (mass/volume)Ordered By: Kody Gonzalez on 10-02-2022 Urea nitrogen [Mass/Vol] 7 mg/dL 9-23 [facility] TSH DL <= 0.005 mIU/L QnOrde red By: Kody Gonzalez on 10-02-2022 TSH Qn 1.58 m[IU]/L 0.45-5.33 [facility] Thyroxine (T4) free [Mass/vo lume] in Serum or PlasmaOrdered By: Kody Gonzalez on 10-02-2022 Free T4 [Mass/Vol] 0.55 ng/dL 0.61-1.12 [facility] Triglyceride [Mass/volume] i n Serum or PlasmaOrdered By: Kody Gonzalez on 10-02-2022 Triglyceride [Mass/Vol] 299 mg/dL 35-[address] [facility] Comment on above: TRIG ATP III CLASSIF ICATIONTRIG less than 150 mg/dL NormalTRIG 150-199 mg/dL Borderline highTRIG 200-500 mg/dL High TRIG greater than 500 mg/dL Very highStandard traceable to the Center for Disease Conrtrol and Prevention (CDC) test method. Urine microalbumin measureme nt with detection limit of 20 mg/L or less (mass/volume)Ordered By: Kody Gonzalez on 10-02-2022 Albumin DL <= 20 mg/L (U) [Mass/Vol] 12.2 mg/dL 0.0-1.8 [facility] Urine microalbumin/creatinin e mass ratioOrdered By: Kody Gonzalez on 10-02-2022 Albumin/Creatinine DL <= 20 mg/L (U) [Mass ratio] 48.0 mg/g 0.0-30.[address] [facility] Comment on above: 30-300 mg/g indicate s an increased risk for diabetic nephropathy. Greater than 300 mg/g is consistent with clinical nephropathy. (Am. J. Kidney Disease 1995, 25:107) WBC Auto (Bld) [#/Vol]Ordere d By: Kody Gonzalez on 10-02-2022 WBC (Bld) [#/Vol] 5.4 10*3/uL 4.1-10.5 [facility] C reactive protein [Mass/vol ume] in Serum or PlasmaOrdered By: Kody Gonzalez on 09-24-2022 CRP [Mass/Vol] < 0.5 mg/dL 0.0-1.0 [facility] Erythrocyte sedimentation ra te by Photometric methodOrdered By: Kody Gonzalez on 09-24-2022 ESR Photometric method (Bld) [Velocity] 7 mm/hr 0-14 [facility] Serum or plasma rheumatoid f actor measurement (units/volume)Ordered By: Kody Gonzalez on 09-24-2022 Rheumatoid factor Qn 11.3 [IU]/mL <14.0 [facility] Comment on above: Performed at: [address] [id number] Director: Fuentes Henderson PhD, Phone: [phone] Serum or plasma uric acid me asurement (mass/volume)Ordered By: Kody Gonzalez on 09-24-2022 Urate [Mass/Vol] 3.7 mg/dL 2.6-7.2 [facility] Encounters Encounter Date Encounter Type Care Provider Facility Start: 08-31-2024 End: 08-31-2024 Telephone encounter Franki Orellana DO Work Phone: [facility] Start: 08-02-2024 End: 08-02-2024 Telephone encounter Franki Orellana DO Work Phone: [facility] Start: 03-29-2024 End: 03-29-2024 ambulatory FRANKI L CUTLER Not Available Start: 12-31-2023 End: 12-31-2023 ambulatory FRANKI L CUTLER Not Available Start: 12-25-2023 End: 12-25-2023 ambulatory Franki L Augusta Facility:[facility] Start: 12-25-2023 End: 12-25-2023 ambulatory DO Franki L Augusta Work Phone: [facility] Work Phone: Start: 12-25-2023 End: 12-25-2023 Patient encounter procedure DO Franki Augusta Work Phone: [facility] [place] Work Phone: Start: 11-19-2023 Bamboo flowsheet Franki L Cut ler DO Work Phone: [facility] Start: 11-19-2023 Bamboo flowsheet Franki L Cut ler DO Work Phone: [facility] Start: 11-19-2023 End: 11-19-2023 ambulatory FRANKI L CUTLER Not Available Start: 10-02-2022 End: 10-02-2022 ambulatory MD Kody Gonzalez Work Phone: [facility] Work Phone: Start: 10-02-2022 End: 10-02-2022 Patient encounter procedure MD Kody Gonzalez Work Phone: [facility] [place] Start: 09-24-2022 End: 09-24-2022 ambulatory MD Kody Gonzalez Work Phone: [facility] Work Phone: Start: 09-24-2022 End: 09-24-2022 Patient encounter procedure MD Kody Gonzalez Work Phone: [facility] [place] Procedures Date Procedure Procedure Detail Performing Clinician Start: 09-24-2022 Plain X-ray of right hand MD Kody Gonzalez Work Phone: Plan of Treatment Date Care Activity Detail Author Start: 12-06-2026 Screening for malign ant neoplasm of colon [facility] Start: 12-24-2024 Urine screening for protein Diabetes: Urine Protein Screening [facility] Start: 09-27-2024 End: 09-27-2024 Patient encounter procedure 09/27/2024 8:20 AM EST Office Visit [facility] [address] [place] [address] Franki Orellana, DO [address] [place] [address] [facility] [address] Start: 06-29-2024 Hemoglobin A1c measurement Diabetes: Hemoglobin A1C [facility] Start: 06-13-2024 Influenza vaccination Influenza Vacc ine (#1) [facility] Start: 11-19-2023 End: 11-19-2023 Patient encounter procedure 11/19/2023 8:00 AM EST Office Visit [facility] [address] [facility] [address] [place] [address] Franki Orellana, DO [address] [place], [place] [id number] Arrived [facility] Comment on above: Arrived Start: 1985 Glaucoma screening Diabetes: R etinopathy Screening [facility] Start: 1975 Screening for malign ant neoplasm of colon [facility] Rheumatoid factor [Units/volume] in Serum or Plasma [facility] Work Phone: Payers Date Payer Category Payer Self-pay [id number] 2022 [facility] [id number] 2022 Unknown BCBS BCBS [id number] [id number] 2022-Present [phone] [address] [place] [address] [id number] 2022 Unknown [id number] 1975 Unknown [id number] 1975 Unknown [id number] 1975 Unknown [id number] Unknown Mya BC/BS [id number] Unknown [id number] Social History Date Type Detail Facility Tobacco [place] [facility] [place] if ever smoked [facility] Work Phone: Start: 1975 Sex Assigned At Male [facility] Start: 1975 Sex Assigned At Not on file [facility] Start: 03-29-2024 Gender identity Not on file [facility] Start: 03-29-2024 Tobacco smoking status [facility] Smokes tobacco daily [facility] History of tobacco use Cigarette Smoker [facility] Start: 03-29-2024 Cigarettes smoked current (pack per day) - Reported 0.5 [facility] Start: 03-29-2024 Tobacco use and exposure User of smokeless tobacco [facility] History of tobacco use Chews Tobacco [facility] Start: 03-29-2024 Alcoholic beverage intake Current drinker of alcohol (finding) [facility] Start: 11-19-2023 Alcohol Comment Daily - 12 pack [facility] Start: 04-21-2024 Gender identity Identifies as male gender (finding) [facility] Start: 04-21-2024 Sexual orientation Heterosexual (finding) [facility] Telephone encounter Note 08-31-2024 Telephone Encounter - Franki Orellana DO - 08/31/2024 2:05 PM EST Note Date & Type Note Facility 08-31-2024 Telephone encount er Note Sleep study positive for CLAIRE - please let patient or his know. Order for CPAP was sent to [facility] and they should contact him in 7-10 days [facility] Note 08-31-2024 Telephone Encounter - Franki Orellana DO - 08/31/2024 2:05 PM EST Note Date & Type Note Facility 08-31-2024 Miscellaneous Notes Formattin g of this note might be different from the original. Sleep study positive for CLAIRE - please let patient or his know. Order for CPAP was sent to [facility] [employer] and they should contact him in 7-10 days documented in this encounter [facility] Telephone encounter Note 08-02-2024 Telephone Encounter - Filomena Ng - 08/02/2024 11:40 AM EDT Note Date & Type Note Facility 08-02-2024 Telephone encount er Note Pt's spouse requesting sleep study be ordered for pt. Does he need an ov or can Dr. Orellana just send referral [facility] Note 08-02-2024 Telephone Encounter - Filomena Ng - 08/02/2024 11:40 AM EDT Note Date & Type Note Facility 08-02-2024 Miscellaneous Notes Formattin g of this note might be different from the original. Pt's spouse requesting sleep study be ordered for pt. Does he need an ov or can Dr. Orellana just send referral documented in this encounter [facility] Evaluation note Note Date & Type Note Facility Evaluation note No assessment information availa [facility] Work Phone: Chief Complaint and Reason for Visit Chief Complaint Inflamatory Arthriti s MCP joint pain and swelling Chief Complaint Inflamatory Arthriti s MCP joint pain and swelling E11.9 I10 E78.0 Z13.296 Chief Complaint E11.65 Advance Directives Advance Directive Response Recorded Date/ Time Advance Directives No March 08 1 12:54pm Advance Directive Response Recorded Date/ Time Advance Directives No March 08 1 1:54pm Summary Purpose Family History No Family History Records FoundNo Family History Records Found Additional Source Comments Care Teams (unrecognized sec tion and content) Team Status: Inactive Member Role Status Dates Kody Gonzalez MD Primary Care Provider, Attending Tony palmer Active Team Status: Active Member Role Status Dates Kody Gonzalez MD Primary Care Provider Active 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 Start Date End Date Franki Orellana DO [address] [place] [address] PCP - General Family Medicine 11/19/23 Team Status: Active Member Role Status Dates Franki Orellana DO Primary Care Provider Active Team Status: Inactive Member Role Status Dates Franki Orellana DO Primary Care Krystai diomedes Attending Provider Active Start: December 25, 2023 End: December 25, 2023 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 Start Date End Date Franki Orellana DO [address] [place] [address] PCP - General Family Medicine 11/19/23 Goals (unrecognized section and content) Goals may be documented in a n alternate sectionGoals may be documented in an alternate sectionGoals may be documented in an alternate section (unrecognized sect ion and content) No Status Records FoundNo Status Records Found INFORMATION SOURCE (unrecogn ized section and content) DATE CREATED AUTHOR 01/03/2024 [facility] DATE CREATED AUTHOR AUTHOR'S LOBO ABEL 03/29/2024 [facility] EPIC FOR RECORDS PERTAINING TO PATIENTS WHO ARE OR HAVE BEEN ENROLLED IN A CHEMICAL DEPENDENCY/SUBSTANCEABUSE PROGRAM, SOME INFORMATION MAY BE OMITTED. This clinical summary was aggregated from multiple sources. Caution should be exercised in using it in the provision of clinical care. This summary normalizes information from multiple sources, and as a consequence, information in this document may materially change the coding, format and clinical context of patient data. In addition, data may be omitted in some cases. CLINICAL DECISIONS SHOULD BE BASED ON THE PRIMARY CLINICAL RECORDS. [facility] [employer] [facility]. provides no warranty or guarantee of the accuracy or completeness of information in this document.
[2024-09-04] MEDS: ADACEL DIPH,PERTUSS(ACELL),TET VAC/PF 0.5 ML ADULT SYRINGE IM (10:18)
[2024-09-04] MEDS: LIDOCAINE HCL 1% 100 MG/10 ML MDV INJ (10:19)
--- NOTE | 2024-09-04 10:21 | ED.WOUNDLAC1 ---
HPI - Wound/Laceration General Chief Complaint: Wound/Laceration Stated Complaint: LEFT LOWER EXTREMITY INJURY Time Seen by Provider: 09/04/24 09:40 Mode of arrival: walk-in History of Present Illness HPI narrative: 49-year-old male presents to the emergency department for laceration to the left thigh sustained on a chainsaw just before coming into the emergency department. No other injury was sustained. It has been more than 10 years since a tetanus shot. He is not complaining of weakness or numbness. Related Data Home Medications ?Medication ?Instructions ?Recorded ?Confirmed amlodipine 5 mg-olmesartan 40 mg 1 tab PO Q24H 09/04/24 09/04/24 tablet atorvastatin 20 mg tablet 20 mg PO DAILY 09/04/24 09/04/24 metformin 500 mg tablet,extended 2,000 mg PO DAILY 09/04/24 09/04/24 release 24 hr semaglutide 0.25 mg or 0.5 mg (2 2 mg subcut .weekly 09/04/24 09/04/24 mg/3 mL) subcutaneous pen injector ([employer]) venlafaxine 75 mg capsule,extended 75 mg PO DAILY 09/04/24 09/04/24 release 24 hr Allergies Allergy/AdvReac Type Severity Reaction Status Date / Time No Known Drug Allergies Allergy Verified 09/04/24 09:42 Review of Systems ROS Narrative A ten point review of systems is negative except as noted above. PFSH PFSH Social History Little interest or pleasure in doing things: not at all Feeling down, depressed, or hopeless: not at all Exam Narrative Exam Narrative: Nurses note and vital signs reviewed and patient is not hypoxic. General: The patient appears well and in no apparent distress. Patient is resting comfortably on cart. Skin: Warm, dry, no pallor noted. There is no rash noted. Head: Normocephalic, atraumatic Eye: Normal conjunctiva, no drainage Ears, Nose, Mouth, and Throat: oral mucosa is moist. Nares patent. Cardiovascular: Regular Rate and Rhythm Respiratory: Patient is in no distress, no accessory muscle use Back: non-tender GI: Normal bowel sounds, no tenderness to palpation, no masses appreciated. No rebound, guarding, or rigidity noted. Musculoskeletal: Left leg is examined. Above the knee are 2 adjacent 4 cm somewhat irregular lacerations. No active bleeding. Knee has full range of motion. No obvious foreign body. Neurological: A&O, normal speech Psychiatric: Cooperative Constitutional Vital Signs, click to edit/add: Last Vital Signs Temp 98.1 F 09/04/24 09:42 Pulse 103 H 09/04/24 09:42 Resp 18 09/04/24 09:42 BP 146/104 H 09/04/24 09:42 Pulse Ox 98 09/04/24 09:42 Course Vital Signs Vital signs: Vital Signs Temperature 98.1 F 09/04/24 09:42 Pulse Rate 103 H 09/04/24 09:42 Respiratory Rate 18 09/04/24 09:42 Blood Pressure 146/104 H 09/04/24 09:42 Pulse Oximetry 98 09/04/24 09:42 Temperature 98.1 F 09/04/24 09:42 Pulse Rate 103 H 09/04/24 09:42 Respiratory Rate 18 09/04/24 09:42 Blood Pressure 146/104 H 09/04/24 09:42 Pulse Oximetry 98 09/04/24 09:42 MDM - Wound/Laceration MDM Narrative Medical decision making narrative: Sutures are to be removed in 7 to 10 days and tetanus status is updated. Treatment diagnosis and follow-up were discussed with the patient. Differential Diagnosis Differential diagnosis: Likely laceration Discharge Plan Discharge Chief Complaint: Wound/Laceration Clinical Impression: Laceration Patient Disposition: Home, Self-Care Time of Disposition Decision: 10:20 Condition: Good Mode of Transportation: Private Vehicle Prescriptions / Home Meds: No Action amlodipine-olmesartan 5-40 mg tablet 1 tab PO Q24H atorvastatin 20 mg tablet 20 mg PO DAILY metformin 500 mg tablet extended release 24 hr 2,000 mg PO DAILY Ozempic 0.25 mg or 0.5 mg (2 mg/3 mL) pen injector 2 mg SUBCUT .weekly venlafaxine 75 mg capsule,extended release 24hr 75 mg PO DAILY Print Language: [place] Instructions: Laceration (ED) Additional Instructions: Sutures to be removed in 7 to 10 days. Referrals: Physician,Non-Staff, MD [Primary Care Provider] - 1 week Procedures ED Procedure Instructions Procedures Procedures: The following procedure was performed by me. Local infiltration was carried out with 1% lidocaine without epinephrine resulting in good skin anesthesia. The area was prepped with Betadine x 3 and draped sterilely. It was explored for foreign bodies and none were found and then closed with five 4-0 Ethilon sutures in each laceration resulting in good skin reapproximation and complete hemostasis. No complications.
[2024-09-04 10:40] VITALS: BP 136/86; PULSE 86; O2SAT 98
== END 2024-09-04 10:41 | disposition home or self-care (01) ==
PROVIDERS: Emergency Provider Emergency Medicine
DX: S71.112A Laceration without foreign body, left thigh, initial encounter (principal); W45.8XXA Other foreign body or object entering through skin, initial encounter; W29.3XXA Contact with powered garden and outdoor hand tools and machinery, initial encounter; Z23 Encounter for immunization
CPT/HCPCS: 12002; 90471; 90715; 99284